=== PATIENT | female | born 1980 | race Caucasian/White ===

== ENCOUNTER 2021-01-13 10:08 | Emergency (ER) | payer BC, SELFPAY ==
--- NOTE | ~2021-01-13 | XR_ITS ---
EXAMINATION: XR chest 2V EXAM DATE: 01/13/2021 10:38 INDICATION: cough fever x 3-5 days. TECHNIQUE: Frontal and lateral projections of the chest obtained and reviewed. There is no prior jennifer dy for comparison. FINDINGS: Subsegmental left lower lobe opacity probably pneumonia, would favor bacterial etiology gi ross no evidence of right basilar airspace disease. Mild hyperinflation. No pneumothorax or pleural ef fusion. Cardiomediastinal silhouette is normal. There are no osseous abnormalities identified. IMPRESSION: Subsegmental left lower lobe opacities suspicious for pneumonia. Reviewed, dictated and finalized at location [facility].
--- NOTE | 2021-01-13 10:27 | ED.URI ---
HPI - URI/Sore Throat General Chief Complaint: Upper Respiratory Infection Stated Complaint: upper respiratory infection Source: patient Mode of arrival: ambulatory Limitations: no limitations History of Present Illness HPI Narrative: Patient is a 40-year-old female who presents complaining of sore throat, fever, cough, congestion, headache and body aches x3 to 4 days. Patient reports generalized malaise.Patient denies known Covid exposure and has not been vaccinated. Patient reports mild shortness of breath. Vital signs stable. Patient reports taking [id number] cold and flu medication with limited relief. Patient denies significant medical history. MD elicited complaint: fever, cough, sore throat and nasal congestion Related Data Allergies Allergy/AdvReac Type Severity Reaction Status Date / Time No Known Allergies Allergy Mild Verified 08/23/10 13:11 Review of Systems Review of Systems: Narrative: CONSTITUTIONAL: Reports fever and chills EYES: Denies visual changes, redness, or discharge. ENT: Reports congestion and sore throat CARDIOVASCULAR: Denies chest pain, palpitations, or edema. RESPIRATORY: Reports cough and mild dyspnea. GASTROINTESTINAL: Denies abdominal pain, nausea, vomiting, or diarrhea. GENITOURINARY: Denies dysuria or hematuria. SKIN: Denies rash or itching. MUSCULOSKELETAL: Denies back pain, joint pain, or myalgia. NEUROLOGIC: Reports headache, denies numbness, dizziness, or weakness. PSYCHIATRIC: Denies anxiety or depression. [facility] Surgical History Surgical History (Updated 01/13/21 @ 10:31 by ABHISHEK Valdovinos) H/O LEEP H/O: Family History Family History (Updated 03/05/16 @ 23:19 by DOCTOR UNKNOWN) Grandparent Family history of malignant neoplasm of breast Family history of coronary artery disease, Onset Age: 59 Social History Social History (Updated 01/13/21 @ 10:31 by ABHISHEK Valdovinos) Smoking status: Current every day smoker Tobacco type: cigarettes Alcohol intake: current Alcohol use details: Occasional Substance use: never Living arrangements: with family Occupation/Education: occupation Gender identity (if verbalized by the patient): Female Comments At the time of signature, I have reviewed and agree with nursing past medical, surgical, social, and family history unless otherwise noted. Please see nursing chart for further information. There is no relevant family history pertinent to the presenting complaint. Exam Narrative: Exam Narrative: GENERAL: Well-appearing, well-nourished, and in no acute distress. HEAD: Normocephalic, atraumatic. EYES: EOMI. No redness or drainage. Conjunctiva are normal. ENT: Mucous membranes pink and moist. Nares clear. No rhinorrhea. TMs normal bilaterally. Throat erythema without edema or exudate. Uvula midline. NECK: AROM. Supple. No lymphadenopathy. CHEST: No respiratory distress. Left expiratory wheeze. HEART: Regular rate and rhythm. No murmur appreciated. Normal peripheral pulses. EXTREMITIES: Normal range of motion. No edema. SKIN: Warm, dry, no rash. NEURO: No focal deficits. Alert and oriented x3. Gait steady. PSYCH: Normal affect. No signs of depression or anxiety. Course Vital Signs Vital signs: Vital Signs Temperature 37.7 C H 01/13/21 10:30 Pulse Rate 77 01/13/21 10:30 Respiratory Rate 20 01/13/21 10:30 Blood Pressure 166/78 H 01/13/21 10:30 Pulse Oximetry 100 01/13/21 10:30 Temperature 37.7 C H 01/13/21 10:30 Pulse Rate 77 01/13/21 10:30 Respiratory Rate 20 01/13/21 10:30 Blood Pressure 166/78 H 01/13/21 10:30 Pulse Oximetry 100 01/13/21 10:30 MDM - URI/Sore Throat MDM Narrative Medical decision making narrative: Patient's rapid Covid negative. Rapid strep positive. Patient to be started on antibiotics at this time. Discussed with patient red flags and when to return. Discussed antibiotic compliance. Patient is stable for discharge home wi
[2021-01-13 10:30] VITALS: BP 166/78; PULSE 77; RESP 20; TEMP 37.7; O2SAT 100
== END 2021-01-13 11:03 | disposition home or self-care (01) ==
PROVIDERS: Emergency Provider Nurse Practitioner; PCP Family Medicine
DX: J02.0 Streptococcal pharyngitis (principal); J18.1 Lobar pneumonia, unspecified organism; Z20.822 Contact with and (suspected) exposure to COVID-19; F17.210 Nicotine dependence, cigarettes, uncomplicated
CPT/HCPCS: 71046; 87426; 87880; 99213; C9803; G0463

== ENCOUNTER 2022-09-05 11:04 | Emergency (ER) | payer BC, SELFPAY ==
--- NOTE | 2022-09-05 11:05 | ED.URI ---
HPI - URI/Sore Throat General Chief Complaint: Upper Respiratory Infection Stated Complaint: Sore Throat,Cough Time Seen by Provider: 09/05/22 11:05 Source: patient Mode of arrival: ambulatory Limitations: no limitations History of Present Illness HPI Narrative: Rula is a 41-year-old female patient presenting to the clinic today with complaints of sore throat, nasal congestion, nausea, sinus pressure, runny nose, fever, and productive cough with yellow phlegm x 11 days. She reports highest fever was 102. She does report some mild shortness of breath times. She is a current smoker. She denies any known exposure to anybody with COVID, flu, or strep. MD elicited complaint: cough, sore throat and nasal congestion Related Data Home Medications Medication Instructions Recorded Confirmed levonorgestrel 20 mcg/24 hours (8 See Rx Instructions .Route .COMPLEX 09/05/22 09/05/22 yrs) 52 mg intrauterine device (Mirena) Allergies Allergy/AdvReac Type Severity Reaction Status Date / Time No Known Allergies Allergy Mild Verified 09/05/22 11:05 Review of Systems Review of Systems: Pertinent positives per HPI. Patient denies any rash, headache, visual changes, dizziness, shortness of breath, chest pain, palpitations, nausea, vomiting, diarrhea, constipation, abdominal pain, or any urinary issues. [facility] Past Medical History Medical History Acute pharyngitis, unspecified (06/02/17) BMI 25.0-25.9,adult Body mass index [BMI] 35.0-35.9, adult (06/02/17) Surgical History Surgical History H/O LEEP H/O: Family History Family History Grandparent Family history of malignant neoplasm of breast Family history of coronary artery disease, Onset Age: 59 Father Alcohol abuse Diabetes mellitus Heart disease Hypertension Mother No problems noted. Sibling No problems noted. 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 There is no relevant family history pertinent to the patient complaint. Exam Narrative: General: Well-developed, well nourished, in no apparent distress Head: Normocephalic, atraumatic Eyes: Pupils equally round and reactive to light bilaterally, EOM intact, sclera and conjunctive clear, no discharge, lids normal Ears: TMs intact and congested, ear canals clear, no drainage, grossly hearing normal. Nose: Nares patent, yellow nasal discharge, moderate inflammation, maxillary and frontal sinus tenderness. Mouth: Oral pharynx without lesions or masses, good dentition, MMM. Oropharynx red, postnasal drip Neck: Supple, trachea midline, no enlargement of anterior or posterior cervical nodes, no thyroid masses or goiter palpable. Cardio: Regular rate and rhythm, s1 and s2 normal, no murmur appreciated. Resp: Clear to auscultation bilaterally, no rhonchi, rales, wheezing or rubs Course Course Emergency Course: Portions of this record may have been created with voice recognition software. Level of Care: Express Care Visit Vital Signs Vital signs: Vital Signs Temperature 36.6 C 09/05/22 11:12 Pulse Rate 82 09/05/22 11:12 Respiratory Rate 16 09/05/22 11:12 Blood Pressure 163/94 H 09/05/22 11:1
[2022-09-05 11:12] VITALS: BP 163/94; PULSE 82; RESP 16; TEMP 36.6; O2SAT 100
== END 2022-09-05 11:24 | disposition home or self-care (01) ==
PROVIDERS: Emergency Provider Nurse Practitioner Family; PCP Family Medicine
DX: J01.90 Acute sinusitis, unspecified (principal); J02.9 Acute pharyngitis, unspecified; F17.210 Nicotine dependence, cigarettes, uncomplicated
CPT/HCPCS: 99213; G0463

== ENCOUNTER 2022-10-28 09:26 | Outpatient (CLI) | payer BC, SELFPAY ==
--- NOTE | ~2022-10-28 | US_ITS ---
Pelvic ultrasound. Clinical History: IUD Technique: Realtime transabdominal and transvaginal scanning of the pelvis was performed. Color flow Doppler and Doppler spectral analysis were performed. Findings: The uterus is anteverted. IUD is in place in the endometrial cavity. The endometrial stripe has a thickness of 5 mm. No focal mass is identified. The right ovary measures 3.3 x 2.2 x 3.3 cm. No significant right ovarian or adnexal mass is seen. The left ovary measures 2.7 x 1.6 x 2.1 cm. No significant left ovarian or adnexal mass is seen. Vascular flow present in both ovaries on Doppler spectral analysis. There is no evidence of free fluid in the cul de sac. Impression: IUD in satisfactory position. Reviewed, dictated and finalized at [facility]. Impression: IUD in satisfactory position.
== END 2022-10-28 09:27 ==
LOC: MICIMG 09:26
PROVIDERS: PCP Nurse Practitioner; Visit Provider Nurse Practitioner
DX: N93.8 Other specified abnormal uterine and vaginal bleeding (principal); Z97.5 Presence of (intrauterine) contraceptive device
CPT/HCPCS: 76830

== ENCOUNTER 2022-12-23 09:21 | Outpatient (CLI) | payer BC, SELFPAY ==
--- NOTE | ~2022-12-23 | MM_ITS ---
EXAMINATION: MM screening grant BI w neal HISTORY: Screening mammogram TECHNIQUE: Craniocaudal and mediolateral oblique 3-D tomosynthesis images were obtained and synthetic 2-D images were generated. CAD analysis was submitted and interpreted. COMPARISON: No prior mammogram is available for comparison at this institution. BREAST PARENCHYMAL COMPOSITION: There are scattered areas of fibroglandular density. FINDINGS: RIGHT BREAST: No suspicious mass, calcification, or architectural distortion are identified to sugges t malignancy. LEFT BREAST: There is focal asymmetry in the middle and posterior third of the upper outer quadrant o f the breast. IMPRESSION: 1. Left breast focal asymmetry. 2. Additional mammographic views and possible breast ultrasound are recommended. BI-RADS Category 0: Incomplete: Needs additional imaging evaluation. Reviewed, dictated and finalized at location A. IMPRESSION: 1. Left breast focal asymmetry. 2. Additional mammographic views and possible breast ultrasound are recommended . BI-RADS Category 0: Incomplete: Needs additional imaging evaluation.
== END 2022-12-23 09:22 | disposition home or self-care (01) ==
PROVIDERS: PCP Nurse Practitioner; Visit Provider Nurse Practitioner
DX: Z12.31 Encounter for screening mammogram for malignant neoplasm of breast (principal); R92.8 Other abnormal and inconclusive findings on diagnostic imaging of breast
CPT/HCPCS: 77063; 77067

== ENCOUNTER 2024-11-22 08:21 | Outpatient (CLI) | payer BC, SELFPAY ==
--- NOTE | ~2024-11-22 | XR_ITS ---
CHEST RADIOGRAPH, PA AND LATERAL CLINICAL HISTORY: J18.9 - Pneumonia, unspecified organism . COMPARISON: 01/13/2021 TECHNIQUE: PA and lateral views of the chest. FINDINGS The cardiomediastinal silhouette is unremarkable. The lungs are clear. Visualized osseous structures and soft tissues are unremarkable. IMPRESSION: No focal infiltrate or effusion. Reviewed, dictated and finalized at location A.
--- OUTSIDE RECORDS SUMMARY | 2024-11-22 08:36 | XMS_ITS | Clinical Summary ---
Author Organization [facility] Address [address] [place] [address] Care Team Providers Care Management Architect Name Role Phone Dennis Drew MD Primary Care Provider [phone] Allergies No known active allergies Medications vitamin C (ASCORBIC ACID) 250 MG tablet Take 1 tablet (250 mg total) by mouth daily. Active [place]-3 Fatty Acids (FISH OIL) 500 MG capsule Take 500 mg by mouth daily. Active Vitamin D3 (VITAMIN D) 50 mcg tablet Take 1 tablet (50 mcg total) by mouth daily. Active melatonin 1 MG tablet Take 1 tablet (1 mg total) by mouth nightly as needed. Active famotidine (PEPCID) 20 MG tablet Take 1 tablet (20 mg total) by mouth 2 (two) times daily. 20 tablet 10/24/2024 Active albuterol sulfate HFA 108 (90 Base) MCG/ACT inhaler Inhale 2 puffs into the lungs every 6 (six) hours as needed for Wheezing. 1 g 10/24/2024 Active guaiFENesin-cod eine (GUAIFENESIN AC) 100-10 MG/5ML syrupIndication s:Cough Take 5 mLs by mouth every 4 (four) hours as needed for Cough. Indications: Cough 120 mL 10/24/2024 Active predniSONE 50 MG tablet Take 1 tablet (50 mg total) by mouth daily for 10 days. 10 tablet 10/24/2024 11/04/19 25 azithromycin (ZITHROMAX) 500 mg tablet Take 1 tablet (500 mg total) by mouth daily for 10 days. 10 tablet 10/24/2024 11/04/19 25 Encounters Date Type Department Care Team Description 10/24/2024 8:50 AM CDT - 10/24/2024 11:57 AM CDT Emergency [facility] Emergency Room [address] [place] [address] Anahy Negrete MD Pleuritic Chest Pain Discharge Disposition: Home or Self Care (Routine Discharge) 10/24/2024 Travel from Last 3 Months Social History Tobacco Use Types Packs/Day Years Used Date Smoking Tobacco: Every Day Cigarettes Smokeless Tobacco: Never Tobacco Cessation:Ready to Q uit: Not Asked; Counseling Given: Not Answered Alcohol Use Standard Drinks/Week Comments Never 0 (1 standard drink = 0.6 oz pur e alcohol) Comments No Sex and Gender Information Value Date Recorded Sex Assigned at Not on file Legal Sex Female 7:26 PM CDT Gender Identity Not on file Sexual Orientation Not on file Last Filed Vital Signs Vital Sign Reading Time Taken Comments Blood Pressure 126/84 10/24/2024 11:10 AM CDT Pulse 66 10/24/2024 11:45 AM CDT Temperature 37.6 C (99.6 F) 10/24/2024 8:55 AM CDT Respiratory Rate 13 10/24/2024 11:45 AM CDT Oxygen Saturation 97% 10/24/2024 11:45 AM CDT Inhaled Oxygen Concentration - - Weight 65.8 kg (145 lb) 10/24/2024 8:55 AM CDT Height 162.6 cm (5' 4 ) 10/24/2024 8:55 AM CDT Body Mass Index 24.89 10/24/2024 8:55 AM CDT Plan of Treatment Health Maintenance Due Date Last Done Comments Annual Physical 1983 Pneumococcal Vaccine: Pediat rics (0 to 5 Years) and At-Risk Patients (6 to 49 Years) (1 of 2 - PCV) 1986 Hepatitis C 1998 DTaP, Tdap and Td Vaccines ( 1 - Tdap) 1999 Hepatitis B Vaccines (1 of 3 - 19+ 3-dose series) 1999 Cervical Cancer Screening Pa p Smear (Age 30 to 64) Every 3 Years 05/12/2020 05/12/2017 Mammogram Screening 2020 Cervical Cancer Screening Pa p with HPV Testing (Age 30 to 64) Every 5 Years 05/12/2022 05/12/2017 Cervical Cancer Screening with HPV 05/12/2022 COVID-19 Vaccine (2023-2 5 season) 2024 HPV Vaccines Aged Out No longer eligi ble based on patient's age to complete this topic Meningococcal B Vaccine Aged Out No l onger eligible based on patient's age to complete this topic Meningococcal Vaccine Aged Out No rosio adam eligible based on patient's age to complete this topic RSV Immunizations Under 20 Months Aged Out No longer eligible based on patient's age to complete this topic Procedures Procedure Name Priority Date/Time Associated Diagnosis Comments CTA CHEST PE PROTOCOL STAT 10/24/2024 10:47 AM CDT CORONAVIRUS (COVID 19) STAT 9:51 AM CDT INFLUENZA A & B STAT 10/24/2024 9:51 AM CDT CULTURE, BACTERIA, BLOOD STAT 10/24/2024 9:51 AM CDT CULTURE, BACTERIA, BLOOD STAT 10/24/2024 9:40 AM CDT C-REACTIVE PROTEIN STAT 10/24/2024 9: 40 AM CDT MAGNESIUM STAT 10/24/2024 9:40 AM CDT PRO-BRAIN NATRIURETIC PEPTIDE STAT 10/24/2024 9:40 AM CDT LIPASE STAT 10/24/2024 9:40 AM CDT CK (CPK) STAT 10/24/2024 9:40 AM CDT TROPONIN, QUANT STAT 10/24/2024 9:40 AM CDT COMPREHENSIVE METABOLIC PANEL STAT 10/24/2024 9:40 AM CDT D-DIMER, QUANTITATIVE STAT 10/24/2024 9:40 AM CDT PARTIAL THROMBOPLASTIN TIME,PTT STAT 10/24/2024 9:40 AM CDT PROTHROMBIN TIME, VENOUS STAT 10/24/2024 9:40 AM CDT CBC W/DIFF AUTOMATED STAT 10/24/2024 9:40 AM CDT ECG 12-LEAD Routine 10/24/2024 9:06 AM CDT from Last 3 Months Results * CTA CHEST PE PROTOCOL (10/24/2024 10:47 AM CDT) Anatomical Region Laterality Modality Chest Computed Tomogra phy 10/24/2024 10:5 0 AM CDT Addenda Addendum by Nancy Sullivan MD on 11/04/2024 9:35 AM CDT [facility] [address] [place] [address] exam was performed using one or more of the following dose reduction techniques: automated exposure control, adjustment of the mA and/or kV according to patient size, the use of iterative reconstruction technique, use of ALARA (As Low As Reasonably Achievable) and/or use of Image Gently techniques. Referred By: Interpreted By: Nancy Sullivan MD, 11/04/2024 9:30 AM Impressions 10/24/2024 10:58 AM CDT IMPRESSION: 1. Partially consolidative pneumonia or less likely infiltrate in the right middle lobe. 2. Very mild patchy groundglass airspace opacities in the right upper lobe likely represent atypical pneumonia or other infectious/laboratory process. 3. Mild atelectasis posteriorly in the lower lobes. 4. Mild hyperplasia of the left adrenal gland for which no follow-up imaging is recommended. Referred By: Interpreted By: Nancy Sullivan MD, 10/24/2024 10:50 AM Narrative 10/24/2024 10:58 AM CDT [facility] [address] [place] [address]. [place] [address] EXAMINATION: CTA Chest with Intravenous Contrast, Axial Imaging with Coronal and Sagittal 2-D and 3-D MIP reconstructions as well as 3-D Volume Rendered reconstructions, with 3-D images obtained on an independent work station. 75 mL Isovue-370 was administered intravenously for the post-contrast images. INDICATION: Cough and congestion, right-sided chest pain. History of pneumonia 2 years ago. COMPARISON: None. FINDINGS: No evidence of pulmonary emboli. Main pulmonary artery is normal in size. Aorta is age-appropriate without aneurysm. Heart size is normal with no significant pericardial effusion. No pathologic adenopathy is seen in the chest. Partially included thyroid gland is unremarkable. Partially consolidative infiltrate in the inferior posterior right middle lobe, likely pneumonia. Tiny subpleural emphysematous change in the posteromedial right lower lobe. Very mild patchy groundglass airspace opacities in the right upper lobe likely represent atypical pneumonia or other infectious/laboratory process. Mild atelectasis posteriorly in the lower lobes. Minimal focal groundglass opacity in the lingula likely represents atelectasis and less likely focal pneumonia. No pleural effusion or pneumothorax. Mild hyperplasia of the left adrenal gland for which no follow-up imaging is recommended. Remaining partially included upper abdominal organs are unremarkable. 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 Included upper abdominal organs are unremarkable. No acute osseous abnormality. Procedure Note Nancy Sullivan MD - 10/24/2024 [facility] [address] [facility] [facility] [place] [address] EXAMINATION: CTA Chest with Intravenous Contrast, Axial Imaging withCoronal and Sagittal 2-D and 3-D MIP reconstructions as well as 3-D VolumeRendered reconstructions, with 3-D images obtained on an independent workstation. 75 mL Isovue-370 was administered intravenously for thepost-contrast images. INDICATION: Cough and congestion, right-sided chest pain. History ofpneumonia 2 years ago. COMPARISON: None. FINDINGS: No evidence of pulmonary emboli. Main pulmonary artery is normal in size.Aorta is age-appropriate without aneurysm. Heart size is normal with nosignificant pericardial effusion. No pathologic adenopathy is seen in thechest. Partially included thyroid gland is unremarkable. Partiallyconsolidative infiltrate in the inferior posterior right middle lobe,likely pneumonia. Tiny subpleural emphysematous change in theposteromedial right lower lobe. Very mild patchy groundglass airspaceopacities in the right upper lobe likely represent atypical pneumonia orother infectious/laboratory process. Mild atelectasis posteriorly in thelower lobes. Minimal focal groundglass opacity in the lingula likelyrepresents atelectasis and less likely focal pneumonia. No pleuraleffusion or pneumothorax. Mild hyperplasia of the left adrenal gland for which no follow-up imagingis recommended. Remaining partially included upper abdominal organs areunremarkable. Chronic anterior spondylosis of the thoracic spine.Included upper abdominal organs are unremarkable. No acute osseousabnormality. IMPRESSION: 1. Partially consolidative pneumonia or less likely infiltrate in theright middle lobe. 2. Very mild patchy groundglass airspace opacities in the right upperlobe likely represent atypical pneumonia or other infectious/laboratoryprocess. 3. Mild atelectasis posteriorly in the lower lobes. 4. Mild hyperplasia of the left adrenal gland for which no follow-upimaging is recommended. Referred By: Interpreted By: Nancy Sullivan MD, 10/24/2024 10:50 AM Anahy Negrete MD CT Edited Result - Final * CORONAVIRUS (COVID-19) MOLECULAR (10/24/2024 9:51 AM CDT) CORONAVIRUS SARS COV 2 RNA NEGATIVE NEGATIVE 10/24/2024 10:16 AM CDT [facility] Comment: NEGATIVE RESULTS DO NOT RULE OUT COVID 19 AND SHOULD NOT BE USED THE SOLE BASIS FOR TREATMENT OR PATIENT MANAGEMENT DECISIONS, INCLUDING INFECTION CONTROL DECISIONS. NEGATIVE RESULTS SHOULD BE CONSIDERED IN THE CONTEXT OF A PATIENT'S RECENT EXPOSURES, HISTORY AND THE PRESENCE OF CLINICAL SIGNS AND SYMPTOMS CONSISTENT WITH COVID 19. THE ID NOW COVID-19 2.0 TEST HAS BEEN AUTHORIZED BY THE FDA UNDER EAU FOR USE BY AUTHORIZED LABORATORIES. PERFORMED BY NUCLEIC ACID AMPLIFICATION FOR MOLECULAR QUALITATIVE DETECTION OF SARS-COV-2. SPECIMEN TYPE NASAL 10/24/2024 9:51 AM CDT [facility] NASOPHARYNGEAL SWAB / Unknown 10/24/2024 9:51 AM CDT us Anahy Negrete MD MICROBIOLOGY - GENERAL ORDERABL ES Final Result Performing Organization Address City/[facility] Co de Phone Number [facility] [address] [place] [address], [place] [phone] * INFLUENZA A & B (10/24/2024 9:51 AM CDT) SPECIMEN TYPE NASOPHARYNGEAL SWAB 10/24/2024 10:02 AM CDT [facility] INFLUENZA A NEGATIVE NEGATIVE 10/24/2024 10:19 AM CDT [facility] INFLUENZA B NEGATIVE NEGATIVE 10/24/2024 10:19 AM CDT [facility] NASOPHARYNGEAL SWAB / Unknown 10/24/2024 9:51 AM CDT us Anahy Negrete MD MICROBIOLOGY - GENERAL ORDERABL ES Final Result Performing Organization Address [facility] de Phone Number [facility] [address] [place] [address], [place] [phone] * CULTURE, BACTERIA, BLOOD (10/24/2024 9:51 AM CDT) Only the most recent of2 resultswithin the time period is included. SPEC DESCRIPTION BLOOD 10/24/2024 9:00 AM CDT [facility] SPECIAL REQUESTS NO SPECIAL REQUEST 10/24/2024 9:00 AM CDT [facility] CULTURE RESULT NO GROWTH 5 DAYS 10/29/2024 2:07 PM CDT [facility] BLOOD SPECIMEN OBTAINED FOR BLOOD CULTURE / Unknown 10/24/2024 9:51 AM CDT 10/24/2024 10:01 AM CDT us Anahy Negrete MD MICROBIOLOGY - GENERAL ORDERABL ES Final Result Performing Organization Address [facility] Co de Phone Number [facility] [address] [place] [address], [place] [phone] [facility] [address] [place] [address], [place] [phone] * PRO-BRAIN NATRIURETIC PEPTIDE (10/24/2024 9:40 AM CDT) PRO-B TYPE NATRIURETIC PEPTIDE 19 <125 PG/ML 10/24/2024 10:26 AM CDT [facility] Comment: CUT POINTS ESTABLISHED BY [employer]ATIONAL [employer] ON NT PROBNP (ICON) STUDY (2006). AGE INDEPENDENT: <300 PG/ML HAS A 99% NEGATIVE PREDICTIVE VALUE FOR EXCLUDING ACUTE CHF <50 YEARS: >450 PG/ML IS CONSISTENT WITH ACUTE CHF 50-75 YEARS: >900 PG/ML IS CONSISTENT WITH ACUTE CHF >75 YEARS: >1800 PG/ML IS CONSISTENT WITH ACUTE CHF IN PATIENTS WITH RENAL INSUFFICIENCY (GFR <60), >1200 PG/ML YIELDS A DIAGNOSTIC SENSITIVITY AND SPECIFICITY OF 89% AND 72% FOR ACUTE CHF. 10/24/2024 9:40 AM CDT us Anahy Negrete MD LABORATORY Final Result Performing Organization Address City/[facility]/ZIP Co de Phone Number [facility] [address] [place] [address], [place] [phone] * PARTIAL THROMBOPLASTIN TIME,PTT (10/24/2024 9:40 AM CDT) PTT 33.8 27.0 - 36.8 SEC 10/24/2024 10:19 AM CDT [facility] 10/24/2024 9:40 AM CDT us Anahy Negrete MD LABORATORY Final Result Performing Organization Address [facility] Co de Phone Number [facility] [address] [place] [address], [place] [phone] * PROTIME/INR, VENOUS (10/24/2024 9:40 AM CDT) PROTIME 11.5 9.1 - 12.4 SEC 10/24/2024 10:19 AM CDT [facility] INR 1.0 10/24/2024 10:19 AM CDT [facility] Comment: Recommend INR ranges for Oral Anticoagulant Therapy: Mechanical Cardiac Values 2.5-3.5 All others indication 2.0-3.0 10/24/2024 9:40 AM CDT us Anahy Negrete MD LABORATORY Final Result [facility] [address] [place] [address], [place] [phone] * COMPREHENSIVE METABOLIC PANEL (10/24/2024 9:40 AM CDT) GLUCOSE 94 70 - 99 MG/DL 10/24/2024 10:26 AM CDT [facility] BUN 10 7 - 18 MG/DL 10/24/2024 10:26 AM CDT [facility] CREATININE S/P/B 0.70 0.55 - 1.02 MG/DL 10/24/2024 10:26 AM CDT [facility] SODIUM S/P/B 138 136 - 145 MMOL/L 10/24/2024 10:26 AM CDT [facility] POTASSIUM S/P/B 3.8 3.5 - 5.1 MMOL/L 10/24/2024 10:[address] [facility] CHLORIDE S/P/B 102 100 - 108 MMOL/L 10/24/2024 10:[address] [facility] CO2 24.1 21 - 32 MMOL/L 10/24/2024 10:[address] [facility] CALCIUM S/P/B 9.3 8.5 - 10.1 MG/DL 10/24/2024 10:[address] [facility] BILIRUBIN TOTAL S/P/B 0.5 0.2 - 1.2 MG/DL 10/24/2024 10:[address] [facility] TOTAL PROTEIN S/P/B 7.5 6.4 - 8.2 G/DL 10/24/2024 10:[address] [facility] ALBUMIN S/P/B 4.0 3.4 - 5.0 G/DL 10/24/2024 10:[address] [facility] AST 17 15 - 37 U/L 10/24/2024 10:[address] [facility] ALT 21 14 - 55 U/L 10/24/2024 10:[address] [facility] ALKALINE PHOSPHATASE S/P/B 86 50 - 136 U/L 10/24/2024 10:[address] [facility] ANION GAP 11.9 5 - 15 MMOL/L 10/24/2024 10:[address] [facility] BUN CREATININE RATIO 14.3 6 - 26 10/24/2024 10:[address] [facility] A/G RATIO 1.1 1.0 - 2.0 RATIO 10/24/2024 10:[address] [facility] GFR ESTIMATE >90 >90 ML/MIN/1.7 3 M2 10/24/2024 10:26 AM CDT [facility] Comment: NOTE: eGFR is not calculated for patients <18 years of age. This is an estimated GFR calculation using the new CKD EPI creatinine equation without race and so does not require a correction factor for race. This estimated GFR should not be used for calculating drug doses. 10/24/2024 9:40 AM CDT Anahy Negrete MD LABORATORY Final Result Performing Organization Address [facility] Co de Phone Number [facility] [address] [place] [address], [place] [phone] * (ABNORMAL) D-DIMER, QUANTITATIVE (10/24/2024 9:40 AM CDT) D-DIMER 681(H) 0 - 500 ng{FEU}/mL 10/24/2024 10:19 AM CDT [facility] Comment: D-Dimer values less than or equal to 500 ng/mL FEU have a negative predictive value of >95% for exclusion of deep vein thrombosis and pulmonary embolism. In patients over 50 (who tend to have higher normal baseline D-Dimer values), recent studies suggest age-adjusted D-Dimer cutoff values (calculated as: age [years] x 10 ng/mL) result in equivalent outcomes and no additional false negative findings. 10/24/2024 9:40 AM CDT us Anahy Negrete MD LABORATORY Final Result Performing Organization Address [facility] Co de Phone Number [facility] [address] [place] [address], [place] [phone] * (ABNORMAL) C-REACTIVE PROTEIN (10/24/2024 9:40 AM CDT) C-REACTIVE PROTEIN 8.03(H) <0.29 mg/dL 10/24/2024 2:07 PM CDT [facility] 10/24/2024 9:40 AM CDT Anahy Negrete MD LABORATORY Final Result [facility] [address] [place] [address], * (ABNORMAL) CBC W/DIFF AUTOMATED (10/24/2024 9:40 AM CDT) WBC 18.87(H) 4.4 - 11.0 x10'3/uL 10/24/2024 10:02 AM CDT [facility] RBC 4.55 4.50 - 5.10 x10'6/uL 10/24/2024 10:02 AM CDT [facility] HGB 14.6 12.3 - 15.3 G/DL 10/24/2024 10:02 AM CDT [facility] HCT 43.1 35.9 - 44.6 % 10/24/2024 10:02 AM CDT [facility] MCV 94.7 80.0 - 96.0 FL 10/24/2024 10:02 AM CDT [facility] MCH 32.1(H) 25.3 - 30.9 PG 10/24/2024 10:02 AM CDT [facility] MCHC 33.9 31.0 - 34.1 G/DL 10/24/2024 10:02 AM CDT [facility] RDW 12.9 12.4 - 15.1 % 10/24/2024 10:02 AM CDT [facility] PLT 185 151 - 353 x10'3/uL 10/24/2024 10:02 AM CDT [facility] MPV 11.1 9.6 - 12.0 FL 10/24/2024 10:02 AM CDT [facility] RBC MORPHOLOGY NORMAL 10/24/2024 10:02 AM T [facility] PLT MORPH. NORMAL 10/24/2024 10:02 AM T [facility] WBC MORPHOLOGY NORMAL 10/24/2024 10:02 AM CDT [facility] LYMPHOCYTES % 8.9(L) 15.8 - 45.0 % 10/24/2024 10:02 AM CDT [facility] NEUTROPHILS % 85.5(H) 42.1 - 71.9 % 10/24/2024 10:02 AM T [facility] MONOCYTES % 4.8(L) 5.7 - 12.5 % 10/24/2024 10:02 AM T [facility] EOSINOPHILS 0.1 0.0 - 5.6 % 10/24/2024 10:[address] [facility] BASOPHILS 0.2 0.0 - 1.3 % 10/24/2024 10:[address] [facility] ABS. NEUTROPHILS 16.14(H) 1.40 - 6.00 x10'3/uL 10/24/2024 10:02 AM T [facility] IMMATURE GRANS % 0.5 0.0 - 0.5 % 10/24/2024 10:02 AM T [facility] ABS. LYMPHOCYTES 1.67 0.80 - 4.70 x10'3/uL 10/24/2024 10:[address] [facility] 10/24/2024 9:40 AM CDT us Anahy Negrete MD LABORATORY Final Result [facility] [address] [place] [address], [place] [phone] * TROPONIN, QUANT (10/24/2024 9:40 AM CDT) Pathologist [facility] TROPONIN I HIGH SENSITIVITY 4 0 - 50 ng/L 10/24/2024 10:47 AM CDT [facility] Comment: HIGH DOSES OF BIOTIN, TROPONIN-SPECIFIC AUTOANTIBODIES, AND ANTIBODY THERAPY CONTAINING HAMA MAY INTERFERE WITH THIS TEST RESULT. CORRELATION TO CLINICAL HISTORY AND PRESENTATION RECOMMENDED. 10/24/2024 9:40 AM CDT us Anahy Negrete MD LABORATORY Final Result Performing Organization Address City/[facility]/ZIP Co de Phone Number [facility] [address] [place] [address], [place] [phone] * (ABNORMAL) MAGNESIUM (10/24/2024 9:40 AM CDT) [facility] MAGNESIUM 1.6(L) 1.8 - 2.4 MG/DL 10/24/2024 10:26 AM CDT [facility] 10/24/2024 9:40 AM CDT us Anahy Negrete MD LABORATORY Final Result Performing Organization Address City/[facility]/ZIP Co de Phone Number [facility] [address] [place] [address], [place] [phone] * LIPASE (10/24/2024 9:40 AM CDT) Pathologist [facility] LIPASE 17 16 - 77 UNITS/L 10/24/2024 10:26 AM CDT [facility] 10/24/2024 9:40 AM CDT us Anahy Negrete MD LABORATORY Final Result Performing Organization Address City/[facility]/ZIP Co de Phone Number [facility] [address] [place] [address], [place] [phone] * CK (CPK) (10/24/2024 9:40 AM CDT) CPK 191 26 - 192 U/L 10/24/2024 10:26 AM CDT [facility] 10/24/2024 9:40 AM CDT Anahy Negrete MD LABORATORY Final Result [facility] [address] [place] [address], * ECG 12 lead (10/24/2024 9:06 AM CDT) 10/24/2024 9:06 AM CDT Narrative [facility] ([facility]) RAD - 10/25/2024 11:07 PM CDT [facility] Test Date: 2024-10-24 Pat Name: RULA SIMENTALSEY Department: 85 Room: EXAM 303 Gender: Female Residential Case Manager: : 1980 Requested By: ANAHY NEGRETE Order Number: [id number] Reading MD: Wyatt Pascual Measurements Intervals [place] Rate: 88 P: 72 WY: 156 QRS: 48 QRSD: 75 T: 148 QT: 369 QTc: 447 Interpretive Statements SINUS RHYTHM NONSPECIFIC ST & T-WAVE ABNORMALITY No previous ECG available for comparison Procedure Note Wyatt Pascual MD - 10/25/2024 [facility] Test Date: 2024-10-24 Pat Name: RULA SAQIB Department: 85 Room: EXAM 303 Gender: Female Residential Case Manager: : 1980 Requested By: ANAHY NEGRETE Order Number: [id number] Reading MD: Wyatt Pascual Measurements Intervals [place] Rate: 88 P: 72 [place]: 156 QRS: 48 QRSD: 75 T: 148 QT: 369 QTc: 447 Interpretive Statements SINUS RHYTHM NONSPECIFIC ST & T-WAVE ABNORMALITY No previous ECG available for comparison us Anahy Negrete MD ECG ORDERABLES Final Result [facility] ([facility]) RAD from Last 3 Months Insurance Care Teams Management Architect Relationship Specialty Start Date End Date Dennis Drew MD [address] [address] PCP - General FAMILY PRACTICE 10/24/24
[2024-11-22 09:09] LABS: Basophils Percent Auto 0.5 % (0.2-1.2); Eosinophils Absolute Auto 0.2 K/mm3 (0-0.3); Eosinophils Percent Auto 2.4 % (0-4.4); Hematocrit 50.1 % (37.0-47.0); Hemoglobin 15.8 g/dL (12.0-15.0); Immature Granulocyte Absolute 0.02 K/mm3 (0.00-0.031); Immature Granulocyte Percent A 0.3 % (0-0.5); Lymphocytes Absolute Auto 1.99 K/mm3 (0.9-3.2); Lymphocytes Percent Auto 30.2 % (18.3-44.2); Mean Corpuscular HGB Conc 31.5 g/dl (32-36); Mean Corpuscular Hemoglobin 30.8 pg (26-34); Mean Corpuscular Volume 97.7 fl (80-100); Mean Platelet Volume 11.3 fl (7.4-10.4); Monocytes Absolute Auto 0.4 K/mm3 (0.1-0.6); Monocytes Percent Auto 6.5 % (2.6-8.5); Neutrophils Percent Auto 60.1 % (45.5-73.1); Platelet Count Result 212 k/mm3 (150-375); Red Blood Count 5.13 M/mm3 (4.2-5.4); Red Cell Distribution Width 12.4 % (11.5-14.5); White Blood Count 6.6 K/mm3 (4.5-10.0)
[2024-11-22 09:25] LABS: Alanine Aminotransferase 24 U/L (6-35); Albumin Level 4.7 g/dL (3.5-5.1); Alkaline Phosphatase 82 U/L (38-126); Anion Gap 7 mmol/L (4-12); Aspartate Amino Transferase 27 U/L (14-36); Bilirubin,Total 0.7 mg/dL (0.2-1.3); Blood Urea Nitrogen 8 mg/dL (7-17); Calcium 9.1 mg/dL (8.4-10.2); Carbon Dioxide 29 mmol/L (22-30); Chloride 102 mmol/L (98-107); Cholesterol 226 mg/dL (0-200); Estimated Glomerular Filt Rate > 60; Glucose 98 mg/dL (65-110); HDL Direct 79 mg/dL; Potassium 4.2 mmol/L (3.4-5.0); Sodium 138 mmol/L (137-145); Triglycerides 103 mg/dL (<150)
[2024-11-22 09:36] LABS: D Dimer 0.38 ug/mL (<0.48); LDL Cholesterol Direct 108 mg/dL
[2024-11-22 09:54] LABS: Thyroid Stimulating Hormone 0.799 uIU/mL (0.465-4.680)
== END 2024-11-22 08:22 | disposition home or self-care (01) ==
LOC: ANHLAB 08:23
PROVIDERS: PCP Nurse Practitioner Adult Health; Visit Provider Nurse Practitioner Adult Health
DX: J18.9 Pneumonia, unspecified organism (principal); Z13.29 Encounter for screening for other suspected endocrine disorder; Z13.220 Encounter for screening for lipoid disorders
CPT/HCPCS: 36415; 71046; 80053; 80061; 83735; 84443; 85025; 85380